=== PATIENT | female | born 1995 | race American Indian/Alaskan Native ===

== ENCOUNTER 2022-04-14 04:34 | Inpatient (IN) | payer OTHER ==
[2022-04-14] MEDS ORDERED: HYDROcodone/ACETAMINOPHEN 5-325 MG TAB PO PRN (05:53)
[2022-04-14] MEDS ORDERED: BENZOCAINE/MENTHOL 20/0.5% TOP SPRAY 56 GM TP PRN (05:53)
[2022-04-14] MEDS ORDERED: LANOLIN/ZINC/DIMETHICONE (LANSINOH) 7 GM TP PRN (05:53)
[2022-04-14] MEDS ORDERED: ACETAMINOPHEN 325 MG TAB PO PRN (05:53)
[2022-04-14] MEDS ORDERED: MAGNESIUM HYDROXIDE (MOM) ORAL LIQD UDC PO PRN (05:53)
[2022-04-14] MEDS ORDERED: WITCH HAZEL/ GLYCERIN PAD TP PRN (05:53)
--- NOTE | 2022-04-14 05:53 | History and Physical Report ---
History of Present Illness Date of examination: 04/14/22 Date of admission: 04/14/22 04:34 Chief complaint: Home delivery History of present illness: 26-year-old at 45-2/7 weeks gestation had a home delivery and brought to labor delivery by EMS to OB triage. She reports that she received limited care at [facility]. She reports that her delivery was precipitous and produced a liveborn female infant. She states the placenta had expelled at home awaiting for EMS. She is admitted for care. Past History Past Medical History: other (Bipolar disorder) Past Surgical History: no surgical history Family/Genetic History: none Social history: smoking, alcohol abuse - Obstetrical History Expected Date of Delivery: 03/08/22 Actual Gestation: 45 Week(s) 2 Day(s) : 2 Para: 1 Hx # Term Pregnancies: 1 Number of Pregnancies: 0 Spontaneous Abortions: 0 Induced : 0 Number of Living Children: 1 Medications and Allergies Allergies Allergy/AdvReac Type Severity Reaction Status Date / Time No Known Allergies Allergy Verified 04/14/22 05:57 Review of Systems All systems: negative - Vital Signs Vital signs: Vital Signs Pulse Pulse Ox 80 98 04/14/22 04:38 04/14/22 04:38 Temp Pulse Resp BP Pulse Ox 98.5 F 95 H 16 125/68 93 04/14/22 05:35 04/14/22 05:52 04/14/22 05:35 04/14/22 05:12 04/14/22 05:52 - Physical Exam Breasts: Positive: normal Cardiovascular: Regular rate Lungs: Positive: Normal air movement Abdomen: Positive: normal appearance Genitourinary (Female): Positive: normal external genitalia, normal perenium Vulva: both: normal Vagina: Positive: normal moisture, other (No vaginal or perineal lacerations) Uterus: Positive: enlarged, other (Fundus is firm, below the umbilicus) Adnexa: both: normal Anus/Rectum: Positive: normal perianal skin, hemorrhoids Extremities: Positive: normal Deep Tendon Reflex Grade: Normal +2 Results All other labs normal. Ultrasound: other (Bedside ultrasound performed by me reveals no retained placenta suspected.) Assessment and Plan - Patient Problems (1) (normal spontaneous vaginal delivery) Current Visit: Yes Status: Acute Plan to address problem: The patient had a home . There is no retained placenta. There are no peritoneal or vaginal lacerations. labs and urine drug screen is ordered. (2) Bipolar disease during in third trimester Current Visit: Yes Status: Acute Plan to address problem: The medication for this patient is supposed to take is unknown.
[2022-04-14] MEDS: IBUPROFEN 800 MG TAB PO SCH ×4 (06:17→23:19)
[2022-04-14 08:52] LABS: Hematocrit 34.2 % (30.3-42.9); Hemoglobin 11.1 gm/dl (10.1-14.3); Mean Corpuscular HGB Conc 33 % (30-34); Mean Corpuscular Volume 84 fl (79-97); Platelet Count 289 K/mm3 (140-440); Red Blood Count 4.06 M/mm3 (3.65-5.03); Red Cell Distribution Width 14.5 % (13.2-15.2)
[2022-04-14 09:34] LABS: Total Cells Counted 100
[2022-04-14 09:35] LABS: Basophils % (Manual) 0 % (0.0-1.8); Eosinophils % (Manual) 0 % (0.0-4.3); Monocytes % (Manual) 0 % (0.0-7.3); Platelet Estimate Consistent w Auto; RBC Morphology Normal
[2022-04-14] MEDS: DOCUSATE SODIUM 100 MG CAP PO SCH ×3 (12:13→23:19)
[2022-04-14 14:49] LABS: Hepatitis C Virus Antibody Non-Reactive (NonReactive)
[2022-04-15] MEDS: IBUPROFEN 800 MG TAB PO SCH ×3 (06:34→20:11)
[2022-04-15] MEDS: DOCUSATE SODIUM 100 MG CAP PO SCH (11:58)
--- NOTE | 2022-04-15 12:40 | Consultation ---
History of Present Illness - Reason for Consult Consult date: 04/15/22 Reason for consult: mental health eval - History of Present Psychiatric Illness The patient was seen today via telepsych. She was admitted for childbirth. The patient says this is her second . She says she has a boy and now a girl. The patient is polite. She didn't understand why psych was consulted. I asked her about a depression test. She replies "I'm taking it right now." The patient denies any past psych history; diagnoses, past admission, psych meds or past attempt of suicide. She denies SI/HI. She says "I feel fine. I don't have any of that." The patient says she has a good support system with her family. She says she works at [employer]. She says her goal is to find another job. The patient denies any depressive symptoms. She says "I feel great right now." She denies any illicit drug use, alcohol or nicotine. REVIEW OF SYSTEMS Constitutional: Negative for weight loss ENT: Negative for stridor Respiratory: Negative for cough or hemoptysis All other systems reviewed and are negative MENTAL STATUS EXAMINATION General Appearance and Behavior: polite Cooperation: Participating/engaged Psychomotor Behavior: Mood: great Affect and affective range: Thought Process: goal directed Thought Content: reality oriented Speech: Normal tone and pace Suicidal Ideation: Denies Homicidal Ideation: Denies Hallucinations: Denies Delusions: None elicited Impulse Control: Normal Insight and Judgment: Limited insight and judgment Memory: Normal Attention: Attentive Orientation: Alert, oriented x 3 Assessment and Plan (1) Encounter for Mental Health Eval Treatment Plan No scripts given Risks, benefits and alternatives of medications discussed with the patient, questions answered and consent obtained from patient. PSYCHOTHERAPY: Supportive psychotherapy provided MEDICAL: Per primary team DELIRIUM PRECAUTIONS: Please re-orient patient frequently, keep lights on during the day, and minimize benzodiazepines and opiates as these medications could worsen patient's confusion. DATASTAGE CONSULTANT: Defer to primary DISPOSITION: Do not recommend acute psychiatric inpatient treatment Will sign off. Thank you for the consult. Please contact with any questions and/or concerns. Case staffed with Dr. Salazar Medications and Allergies Allergies Allergy/AdvReac Type Severity Reaction Status Date / Time No Known Allergies Allergy Verified 04/14/22 05:57 Home Medications Medication Instructions Recorded Confirmed Last Taken Type No Known Home Medications [No 04/15/22 04/15/22 Unknown History Reported Home Medications] Active Meds: Active Medications Acetaminophen (Acetaminophen 325 Mg Tab) 650 mg PO Q4H PRN PRN Reason: Pain MILD(1-3)/Fever >100.5/ACEVEDO Hydrocodone Bitart/Acetaminophen (Hydrocodone/Acetaminophen 5-325 Mg Tab) 2 each PO Q6H PRN PRN Reason: Pain, Moderate (4-6) Benzocaine/Menthol (Benzocaine/Menthol 20/0.5% [place] 56 Gm) 1 spray TP PRN PRN PRN Reason: Episiotomy Pain Docusate Sodium (Docusate Sodium 100 Mg Cap) 100 mg PO BID [facility] Last Admin: 04/15/22 11:58 Dose: 100 mg Ibuprofen (Ibuprofen 800 Mg Tab) 800 mg PO Q8H [facility] Last Admin: 04/15/22 11:58 Dose: 800 mg Magnesium Hydroxide (Magnesium Hydroxide (Mom) Oral Liqd Udc) 30 ml PO HS PRN PRN Reason: Constipation Multi-Ingredient Ointment (Lanolin/Zinc/Dimethicone (Lansinoh) 7 Gm) 1 applic TP PRN PRN PRN Reason: Sore Nipples Sodium Chloride (Sodium Chloride 0.9% 10 Ml Flush Syringe) 10 ml IV PRN PRN PRN Reason: LINE FLUSH Witch Milka/Glycerin (Witch Milka/ Glycerin Pad) 1 each TP PRN PRN PRN Reason: Hemorrhoid/cleansing/soothing Mental Status Exam - Vital signs Last Vital Signs Temp 98.2 F 04/15/22 07:52 Pulse 72 04/15/22 07:53 Resp 18 04/15/22 07:52 BP 115/73 04/15/22 07:52 Pulse Ox 100 04/15/22 08:00 Results Result Diagrams: 04/14/22 08:35 All other labs normal.
--- NOTE | 2022-04-15 13:46 | Progress Note ---
Assessment and Plan A: PP Day #1 Stable P: Follow Routine Orders D/C home in the AM RTO in 6 Weeks Subjective - Subjective Date of service: 04/15/22 Patient reports: appetite normal, voiding normally, pain well controlled, flatus, bowel movement, ambulating normally : doing well, in NICU, bottle feeding Objective - Vital Signs Latest vital signs: Vital Signs Temp Pulse Resp BP BP Pulse Ox Pulse Ox 04/15/22 08:00 100 04/15/22 07:53 72 100 04/15/22 07:52 98.2 F 18 115/73 04/14/22 23:14 98.2 F 88 18 110/68 98 04/14/22 17:00 98.2 F 99 H 16 106/61 99 04/14/22 15:00 98.5 F 95 H 16 106/67 100 Intake and Output 04/14/22 04/15/22 04/15/22 22:59 06:59 14:59 Intake Total 360 240 Output Total 200 Balance 160 240 Intake: Oral 240 240 Intake, Free Water 120 Output: Urine 200 Void 200 Other: Total, Intake Amount 240 240 Total, Output Amount 200 # Voids Void 1 1 # Bowel Movements 0 - Exam Breasts: Present: normal Cardiovascular: Present: Regular rate Lungs: Present: Clear to auscultation, Normal air movement Abdomen: Present: normal appearance, soft, normal bowel sounds Uterus: Present: normal, firm, fundal height below umbilicus Extremities: Present: normal
--- NOTE | 2022-04-15 13:47 | Discharge Summary ---
Providers - Providers Date of Admission: 04/14/22 04:34 Date of discharge: 04/16/22 Attending physician: DINA VERA MD 04/14/22 14:38 Consult to Case Management [CONS] Stat Services Needed at Discharge: Other Notified:: no Additional Physician Instructions: pt had no care, home delivery, and stated she has nowhere to live 04/14/22 15:59 psychiatry consult [Consult to Mental Health] [CONS] Stat Reason For Exam: Hx of bipolar disorder Primary care physician: DINA VERA MD Hospitalization Reason for admission: other ( Care; Delivered) Delivery: Episiotomy: none Laceration: none Other procedures: none complications: none Discharge diagnosis: IUP at term delivered [place] baby: female Condition at discharge: Good Disposition: 01 HOME / SELF CARE / HOMELESS Plan - Provider Discharge Summary Activity: routine, no sex for 6 weeks, no heavy lifting 4 weeks, no strenuous exercise Diet: routine Instructions: routine Additional instructions: [] Smoking cessation referral if applicable(refer to patient education folder for contact #) [] Refer to [facility] Booklet Call your doctor immediately for: * Fever > 100.5 * Heavy vaginal bleeding ( >1 pad per hour) * Severe persistent headache * Shortness of breath * Reddened, hot, painful area to leg or breast * Drainage or odor from incision. * Keep incision clean and dry at all times and follow doctor's instructions regarding bathing/showering - Follow up plan Follow up: DINA VERA MD [Primary Care Provider] - 6 Weeks
[2022-04-15 15:03] LABS: Amphetamine Screen,Urine Negative; Benzodiazepines Screen,Urine Negative; Cocaine Screen,Urine Negative; Methadone Screen,Urine Negative; Opiate Screen,Urine Negative
[2022-04-15 15:20] LABS: Cannabinoid Screen,Urine Positive
[2022-04-15 20:28] LABS: Hematocrit 33.8 % (30.3-42.9); Hemoglobin 11.3 gm/dl (10.1-14.3); Mean Corpuscular HGB Conc 33 % (30-34); Mean Corpuscular Volume 86 fl (79-97); Platelet Count 285 K/mm3 (140-440); Red Blood Count 3.92 M/mm3 (3.65-5.03); Red Cell Distribution Width 13.5 % (13.2-15.2)
[2022-04-16] MEDS: IBUPROFEN 800 MG TAB PO SCH ×2 (14:04→21:27)
[2022-04-16] MEDS: DOCUSATE SODIUM 100 MG CAP PO SCH (16:19)
[2022-04-16 16:45] VITALS: BP 108/72
== END 2022-04-16 23:49 | disposition home or self-care (01) | DRG 776 ==
LOC: LD 04:34 → OB 08:29
PROVIDERS: ADMIT Obstetrics & Gynecology Gynecology; ATTEND Obstetrics & Gynecology Gynecology
PROC: 30233S1 Transfusion of Nonautologous Globulin into Peripheral Vein, Percutaneous Approach (ICD-10-PCS; principal; 2022-04-16)
DX: Z39.0 Encounter for care and examination of mother immediately after delivery (principal); Z20.822 Contact with and (suspected) exposure to COVID-19
CPT/HCPCS: 36415; 80307; 85007; 85025; 85027; 85461; 86592; 86706; 86762; 86803; 86850; 86900; 86901; 87806; G0378; J2790; U0003